=== PATIENT | female | born 1985 | race African-American/Black ===

== ENCOUNTER 2017-09-20 08:56 | Emergency (ER) | payer OTHER ==
[2017-09-20 09:19] VITALS: BP 104/72; PULSE 75; TEMP 98.8; BMI 23.3
--- NOTE | 2017-09-20 09:23 | PDOC ---
History of Present Illness - General Chief Complaint: Urinary Problem Stated Complaint: UTI SYMPTOMS BURNING AND PAIN LOWER ABDOMEN Time Seen by Provider: 09/20/17 09:03 History Source: Patient Exam Limitations: No Limitations - History of Present Illness Travel History: No Initial Comments: 09/20/17 09:15 32y F , sp IUI, currently approx 7 weeks gestation with twins preseints with urinary frequency and suprapbuic pressure. Pt states the symptoms have been going on for approx 2 weeks and she originally went to her obgyn at [facility] who started her on macrobid. She completed gilmer course with minimal improvement by symtoms returned and she was again given another course of macrobid. pt notes that she feels like she needs to urinate and is only urinating a small amount at a time, she also notes some blood in her urine. 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 Past History - Past Medical History Allergies/Adverse Reactions: Allergies Allergy/AdvReac Type Severity Reaction Status Date / Time No Known Allergies Allergy Unverified 09/20/17 08:57 Home Medications: Ambulatory Orders Cephalexin [Keflex] 500 mg PO BID #9 capsule 09/20/17 Ferrous Sulfate [Feosol] 325 mg PO DAILY 09/20/17 Nitrofurantoin Monohyd/M-Cryst [Nitrofurantoin [place]-Mcr 100 mg] 100 mg PO BID Vits #93/Iron Fum/FA [ Formula Tablet] 1 each PO DAILY Review of Systems - Review of Systems Able to Perform ROS?: Yes Comments:: 09/20/17 09:23 Constitutional - no reported Fever, Chills, HEENT: no reported vision changes, sore throat Respiratory: no reported cough, sob, hemoptysis Cardiac: no reported chest pain, palpitations, light headedness, leg swelling Abd/GI: +suprapubic pressure no reported nausea, vomiting, blood per rectum, melena, diarrhea : +dysuria, frequency, no reported discharge Musculskelatal - no reported back pain, joint swelling skin - no reported bruising, erythema, rash neurological: no reported headache, numbness, focal weakness, tingling, ataxia, hematologic: no reported anemia, easy bruising, easy bleeding *Physical Exam - Physical Exam Comments: 09/20/17 09:24 GENERAL: The patient is awake, alert, and fully oriented, Nontoxic - in no acute distress. HEAD: Normocephalic, atraumatic. EYES: extraocular movements intact, sclera anicteric, conjunctiva clear. ENT: Normal voice, Moist mucous membranes. NECK: Normal range of motion, supple LUNGS: Breath sounds equal, clear to auscultation bilaterally. No wheezes, no rhonchi, no rales. HEART: Regular rate and rhythm, normal S1 and S2 without murmur, rub or gallop. ABDOMEN: mild suprapubic tenderness, no adnexal tenderness soft, No guarding, no rebound. No CVA tenderness EXTREMITIES: Normal range of motion, no edema. No clubbing or cyanosis. No cords, erythema, or tenderness. NEUROLOGICAL: No facial assymetry, Normal speech, PSYCH: Normal mood, normal affect. SKIN: Warm, Dry, normal turgor, Medical Decision Making - Medical Decision Making 09/20/17 09:24 will r/o uti will send cultures as this is her 2nd course of abx if uti neg or not suggestive of uTI will do pelvic to r/o discharge 09/20/17 09:48 pts UA c/w UTI will treat with keflex will obtain preg US to confirm viability *DC/Admit/Observation/Transfer Diagnosis at time of Disposition: Urinary tract infection affecting - Discharge Dispostion Disposition: HOME Condition at time of disposition: Improved Admit: No - Prescriptions Prescriptions: Cephalexin [Keflex] 500 mg PO BID #9 capsule - Referrals Referrals: Jamir Ramos MD [Staff Physician] - - Patient Instructions Printed Discharge Instructions: DI for Urinary Tract Infection (UTI) Additional Instructions: Return to the emergency department immediately with ANY new, persistent or worsening symptoms including any Fever, chills, back pain, vomiting or any other concerns. Please follow-up with your COMPUTING ARCHITECT doctor as scheduled for further evaluation of your symptoms. A copy of your ultrasound was included please review this with your doctor. The heart rate was noted to be elevated on the ultrasound. There was also only one fetus identifiable. Please follow up with your sales enablement lead for further evaluation. You MUST call and follow up with your doctor as scheduled next week for further evaluation of your symptoms. Results were discussed with you. Please make sure your doctor reviews the results of your emergency evaluation. Print Language: AUSTRALIAN - Post Discharge Activity
[2017-09-20 09:31] LABS: PH,URINE 5.5 (4.5-8); URINE APPEARANCE Clear; URINE BILIRUBIN Negative (NEGATIVE); URINE BLOOD 2+ (NEGATIVE); URINE COLOR YELLOW; URINE GLUCOSE (UA) Negative (NEGATIVE); URINE KETONE 2+ (NEGATIVE); URINE LEUK ESTERASE 2+ (NEGATIVE); URINE NITRITE Negative (NEGATIVE); URINE PROTEIN Trace (NEGATIVE); URINE UROBILINOGEN 0.2 (0.2-1.0)
[2017-09-20 09:38] LABS: URINE RBC 20-40 /hpf (0-3); URINE WBC 20-40 (0-5)
[2017-09-20 09:39] LABS: URINE BACTERIA MODERATE /hpf (NEGATIVE)
[2017-09-20] MEDS ORDERED: CEPHALEXIN MONOHYDRATE 500 MG CAPSULE (UD) PO ONE (09:47)
[2017-09-20] MEDS ORDERED: ACETAMINOPHEN 325 MG TABLET (FP) PO ONE (09:47)
[2017-09-20] MEDS ORDERED: PHENAZOPYRIDINE HCL 100 MG TABLET (FP) PO ONE (09:51)
[2017-09-20] MEDS ORDERED: ACETAMINOPHEN 325 MG TABLET (FP) ONE (09:55)
[2017-09-20] MEDS ORDERED: PHENAZOPYRIDINE HCL 100 MG TABLET (FP) ONE (09:55)
[2017-09-20] MEDS ORDERED: CEPHALEXIN MONOHYDRATE 500 MG CAPSULE (UD) ONE (09:56)
== END 2017-09-20 12:29 | disposition home or self-care (01) ==
LOC: FER 08:56
DX: O23.41 Unspecified infection of urinary tract in pregnancy, first trimester (principal); Z3A.01 Less than 8 weeks gestation of pregnancy
CPT/HCPCS: 76801-TC; 76817-TC; 81003; 81015; 87086; 99282-25

== ENCOUNTER 2017-11-09 19:26 | Emergency (ER) | payer OTHER ==
[2017-11-09 19:48] VITALS: BP 101/61; PULSE 89; TEMP 98.4; BMI 24.7
--- NOTE | 2017-11-09 20:04 | PDOC ---
History of Present Illness - General History Source: Patient Exam Limitations: No Limitations - History of Present Illness Initial Comments: 11/09/17 20:13 The patient is a 32 year old female , with no significant past medical history, who presents to the emergency department with, four days of lower quadrant abdominal pain. The patient is 4 months . She reports calling her derrick worker about the pain to whom informed her it was possibly due to her uterus expanding. She denies taking anything for the pain.; She denies vaginal bleeding or discharge. She denies recent fevers, chills, headache or dizziness. She denies recent nausea, vomit, diarrhea or constipation. She denies recent dysuria, frequency, urgency or hematuria. She denies recent chest pain or shortness of breath. PAST MEDICAL HISTORY: no significant history PAST SURGICAL HISTORY: no significant history FAMILY HISTORY: no pertinent history SOCIAL HISTORY: Pt lives with family and is employed. MEDICATIONS: reviewed ALLERGIES: As per nursing notes ROS: General: No fevers or chills, no weakness, no weight loss HEENT: No change in vision. No sore throat,. No ear pain CardioVascular: No chest pain or shortness of breath Respiratory:No cough, or wheezing. Abdomen: +LQ abdominal pain. Gastrointestinal: no nausea, vomiting, diarrhea or constipation, No rectal bleeding Genitourinary: No dysuria, hematuria, or frequency Musculoskeletal: No joint or muscle pain or swelling Neurologic: No headache, vertigo, dizziness or loss of consciousness Psychiatric: nor depression Skin: No rashes or easy bruising Endocrine: no increased thirst or abnormal weight change Allergic: no skin or latex allergy Physical Exam: GENERAL: The patient is awake, alert, and fully oriented, in no acute distress. HEAD: Normal with no signs of trauma. EYES: Pupils equal, round and reactive to light, extraocular movements intact, sclera anicteric, conjunctiva clear. EXTREMITIES: Normal range of motion, no edema. ABDOMINAL: + Moderate tenderness upon palpation across the lower abdomen just below the uterus. No guarding or rebound. No CVA tenderness. No back or flank pain. PELVIC: Palpable gravid uterus fundal height above the umbilicus consistent with dates. NEUROLOGICAL: Normal speech, normal gait. PSYCH: Normal mood, normal affect. SKIN: Warm, Dry, normal turgor, no rashes or lesions noted. <Wayne Hoyt - Last Filed: 11/09/17 20:13> - General History Source: Patient Exam Limitations: No Limitations - History of Present Illness Initial Comments: Medical decision making: This is a 32-year-old female who is 16 weeks and comes in complaining of lower abdominal pain right side greater than left. Patient denies any fevers , chills, anorexia or symptoms suggestive of an infection. Patient saw her OB and was told was most likely round ligament pain. Patient is otherwise healthy and has had a normal Will obtain ultrasound, labs and give patient some Tylenol for the pain. We will reassess and review tests and labs. 11/09/17 21:31 Assessment and plan: Reassessment patient is improved with the Tylenol Patient's lab work is all normal including her urinalysis Patient's ultrasound does show some uterine fibroids this most likely is the cause of her discomfort as they are in the area of her where her discomfort is Otherwise there is a normal single intrauterine gestation Patient given copies of her ultrasound and told to follow-up with her OB Patient can take Tylenol for the pain <Torsten Boyd I - Last Filed: 11/09/17 21:33> - General Chief Complaint: Pain Stated Complaint: RIGHT ABDOMINAL PAIN PT Time Seen by Provider: 11/09/17 19:32 Past History <Wayne Hoyt - Last Filed: 11/09/17 20:13> - Past Medical History COPD: No Other medical history: PT IS APPROXIMATELY 4 MONTHS - Reproductive History Is Patient Now?: Yes (#): 5 Para: 2 Therapeutic (s) & number: Yes (1) Spontaneous : 1 - Suicide/Smoking/Psychosocial Hx Smoking History: Never smoked Have you smoked in the past 12 months: No Information on smoking cessation initiated: No Hx Alcohol Use: No Drug/Substance Use Hx: No Substance Use Type: None <Torsten Boyd I - Last Filed: 11/09/17 21:33> - Past Medical History Allergies/Adverse Reactions: Allergies Allergy/AdvReac Type Severity Reaction Status Date / Time No Known Allergies Allergy Unverified 09/20/17 08:57 Home Medications: Ambulatory Orders Cephalexin [Keflex] 500 mg PO BID #9 capsule 09/20/17 Ferrous Sulfate [Feosol] 325 mg PO DAILY 09/20/17 Nitrofurantoin Monohyd/M-Cryst [Nitrofurantoin [place]-Mcr 100 mg] 100 mg PO BID Vit 93/Iron Fum/Folic [ Formula Tablet] 1 each PO DAILY *Physical Exam - Vital Signs Last Vital Signs Temp Pulse Resp BP Pulse Ox 98.4 F 89 16 101/61 100 11/09/17 19:27 11/09/17 19:27 11/09/17 19:27 11/09/17 19:27 11/09/17 19:27 <Wayne Hoyt - Last Filed: 11/09/17 20:13> - Vital Signs Last Vital Signs Temp Pulse Resp BP Pulse Ox 98.4 F 89 16 101/61 100 11/09/17 19:27 11/09/17 19:27 11/09/17 19:27 11/09/17 19:27 11/09/17 19:27 <Torsten Boyd I - Last Filed: 11/09/17 21:33> ED Treatment Course - LABORATORY CBC & Chemistry Diagram: 11/09/17 20:32 11/09/17 20:32 <Torsten Boyd I - Last Filed: 11/09/17 21:33> *DC/Admit/Observation/Transfer - Attestations Scribe Attestion: 11/09/17 20:14 Documentation prepared by Wayne Hoyt, acting as director of graduate medical education for Torsten Boyd MD. <Wayne Hoyt - Last Filed: 11/09/17 20:13> - Discharge Dispostion Admit: No <Torsten Boyd I - Last Filed: 11/09/17 21:33> Diagnosis at time of Disposition: Abdominal pain in Qualifiers: Trimester: second trimester Qualified Code(s): O26.892 - Other specified related conditions, second trimester - Discharge Dispostion Disposition: HOME Condition at time of disposition: Stable - Patient Instructions Additional Instructions: Take a copy of her ultrasound and follow-up with your OB doctor regarding the uterine fibroids and ultrasound report. Tylenol as needed for the pain. Return to the emergency department immediately with ANY new, persistent or worsening symptoms. Continue any medications as previously prescribed by your physician. You should follow up with your primary doctor as soon as possible regarding today's emergency department visit. . Please make sure your doctor reviews the results of your emergency evaluation. Thank you for coming to the Emergency Department today for your care. It was a pleasure to see you today. Please note that your evaluation is INCOMPLETE until you follow-up with your doctor.
[2017-11-09 20:44] LABS: BASO % 0.2 % (0-2.0); EOS % 1.6 % (0-4.5); HEMATOCRIT 34.6 % (32.4-45.2); HEMOGLOBIN 11.3 GM/dl (10.7-15.3); MCH 29.1 pg (25.7-33.7); MCHC 32.6 g/dl (32.0-36.0); MEAN CELL VOLUME 89.2 fl (80-96); MEAN PLT VOLUME 7.3 fl (7.5-11.1); MONO % 6.6 % (3.8-10.2); NEUT % 67.6 % (42.8-82.8); PLATELET COUNT 313 K/MM3 (134-434); RBC 3.88 M/mm3 (3.60-5.2); RDW 11.9 % (11.6-15.6); WHITE BLOOD COUNT 8.3 K/mm3 (4.0-10.8)
[2017-11-09 20:45] LABS: URINE APPEARANCE Clear; URINE BILIRUBIN Negative (NEGATIVE); URINE BLOOD Negative (NEGATIVE); URINE COLOR YELLOW; URINE GLUCOSE (UA) Negative (NEGATIVE); URINE KETONE Negative (NEGATIVE); URINE NITRITE Negative (NEGATIVE); URINE PROTEIN Negative (NEGATIVE); URINE UROBILINOGEN 0.2 (0.2-1.0)
[2017-11-09 20:58] LABS: ALBUMIN 3.5 g/dl (3.5-5.0); ALK PHOS 31 U/L (32-92); ANION GAP 7 (8-16); BILIRUBIN,TOTAL 0.2 mg/dl (0.2-1.0); BLOOD UREA NITROGEN 8 mg/dl (7-18); CHLORIDE 102 mmol/L (98-107); CO2 24 mmol/L (22-28); CREATININE 0.4 mg/dl (0.6-1.3); POTASSIUM 3.8 mmol/L (3.5-5.1); SGOT/AST 19 U/L (10-42); SGPT/ALT 21 U/L (10-40); SODIUM 133 mmol/L (136-145); TOT PROT 6.9 g/dl (6.4-8.3)
[2017-11-09] MEDS ORDERED: ACETAMINOPHEN 500 MG TABLET (FP) ONE (21:41)
[2017-11-09] MEDS ORDERED: ACETAMINOPHEN 500 MG TABLET (FP) PO ONE (21:42)
[2017-11-10 06:21] LABS: GLUCOSE,RANDOM 84 mg/dL (74-106)
== END 2017-11-09 21:43 | disposition home or self-care (01) ==
LOC: FER 19:26
DX: O26.892 Other specified pregnancy related conditions, second trimester (principal); Z3A.16 16 weeks gestation of pregnancy
CPT/HCPCS: 36415; 76705-TC; 80053; 81003; 85025; 99282-25

== ENCOUNTER 2018-12-10 11:36 | Emergency (ER) | payer OTHER ==
[2018-12-10 11:52] VITALS: BP 114/68; PULSE 92; TEMP 99.7; BMI 24.3
--- NOTE | 2018-12-10 12:29 | PDOC ---
History of Present Illness - General Chief Complaint: Cold Symptoms Stated Complaint: COUGH Time Seen by Provider: 12/10/18 12:08 - History of Present Illness Initial Comments: 12/10/18 13:15 And: URI symptoms several days History of present illness: Nasal congestion, watery discharge, sore throat, nonproductive cough for several days. 2 small children at home with similar illness Review of systems: Denies chest pain, shortness of breath, abdominal pain, nausea, vomiting, diarrhea, visual or focal neurologic symptoms, unsteadiness of gait. 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 Physical exam: Alert and oriented well-developed well-nourished no acute distress cheerful and cooperative Afebrile, vital signs normal, specifically normal respiratory rate and oxygen saturation HEENT: Mild nasal congestion, watery discharge, ears and throat clear Neck supple without bruit mass or nodes Chest clear. Full breath sounds bilaterally. No wheezes rales or rhonchi CV S1 and S2 normal without murmur rub or gallop pulses full and symmetric no JVD or edema no bruits Abdomen soft nontender without mass or organomegaly Skin clear, no rash, adequate turgor and wet mucous membranes Impression: Mild viral URI, no sign of pneumonia or other serious respiratory illness Plan: Symptomatic treatment, rest and fluids, home for 2 days. Recheck if symptoms worsen. Fully ambulatory and in no distress upon discharge to follow- up as directed Past History - Past Medical History Allergies/Adverse Reactions: Allergies Allergy/AdvReac Type Severity Reaction Status Date / Time No Known Allergies Allergy Unverified 09/20/17 08:57 Home Medications: Ambulatory Orders Ferrous Sulfate [Feosol] 325 mg PO DAILY 09/20/17 Vit 93/Iron Fum/Folic [ Formula Tablet] 1 each PO DAILY Guaifenesin Dm [Robitussin Dm -] 10 ml PO Q6H PRN #120 ml 12/10/18 COPD: No - Reproductive History (#): 5 Para: 2 Therapeutic (s) & number: Yes (1) Spontaneous : 1 - Suicide/Smoking/Psychosocial Hx Smoking History: Current every day smoker Have you smoked in the past 12 months: No Number of Cigarettes Smoked Daily: 0 Information on smoking cessation initiated: Yes Hx Alcohol Use: No Drug/Substance Use Hx: No Substance Use Type: None *Physical Exam - Vital Signs Last Vital Signs Temp Pulse Resp BP Pulse Ox 99.7 F H 92 H 20 114/68 98 12/10/18 11:37 12/10/18 11:37 12/10/18 11:37 12/10/18 11:37 12/10/18 11:37 Moderate Sedation - Procedure Monitoring Vital Signs: Procedure Monitoring Vital Signs Temperature 99.7 F H 12/10/18 11:37 Pulse Rate 92 H 12/10/18 11:37 Respiratory Rate 20 12/10/18 11:37 Blood Pressure 114/68 12/10/18 11:37 O2 Sat by Pulse Oximetry (%) 98 12/10/18 11:37 *DC/Admit/Observation/Transfer Diagnosis at time of Disposition: Viral upper respiratory tract infection with cough - Discharge Dispostion Disposition: HOME Condition at time of disposition: Stable Decision to Admit order: No - Prescriptions Prescriptions: Guaifenesin Dm [Robitussin Dm -] 10 ml PO Q6H PRN #120 ml PRN Reason: Cough - Referrals Referrals: Reginaldo Fontanez MD [Staff Physician] - - Patient Instructions Printed Discharge Instructions: DI for Viral Upper Respiratory Infection -- Adult Additional Instructions: Rest, fluids, ibuprofen, Robitussin-DM for cough. Stay home and out of the cold as recommended. Return to ER if symptoms worsen Otherwise follow-up with primary physician 2-3 days. - Post Discharge Activity Forms/Work/School Notes: Back to Work
== END 2018-12-10 13:20 | disposition home or self-care (01) ==
LOC: FER 11:36
DX: J06.9 Acute upper respiratory infection, unspecified (principal); R05 Cough
CPT/HCPCS: 99282-25

== ENCOUNTER 2021-09-22 16:20 | Emergency (ER) | payer OTHER ==
[2021-09-22] MEDS ORDERED: ACETAMINOPHEN 1000 MG/100 ML VIAL IVPB ONE (16:38)
[2021-09-22] MEDS ORDERED: FAMOTIDINE 20 MG/50 ML IVPB 20 MG/50 ML MG IVPB ONE ×2 (16:38→16:46)
[2021-09-22] MEDS ORDERED: MAG HYDROX/AL HYDROX/SIMETH 30 ML UNIT-DOSE CUP PO ONE (16:38)
[2021-09-22] MEDS ORDERED: SUCRALFATE 1 GM TABLET (FP) PO ONE (16:42)
[2021-09-22] MEDS ORDERED: ACETAMINOPHEN INJECTION 100 ML IVPB ONE (16:46)
[2021-09-22] MEDS ORDERED: SUCRALFATE 1 GM/10 ML UNIT DOSE CUPS ONE (16:47)
[2021-09-22] MEDS ORDERED: MAG HYDROX/AL HYDROX/SIMETH 30 ML UNIT-DOSE CUP ONE (16:47)
[2021-09-22 16:53] VITALS: BP 128/89; PULSE 86; TEMP 99.7; BMI 24.7
[2021-09-22 17:05] LABS: HCG,QUALITATIVE URINE Negative
[2021-09-22 17:10] LABS: HEMATOCRIT 38.2 % (32.4-45.2); MCH 28.7 pg (25.7-33.7); MCHC 31.5 g/dl (32.0-36.0); MEAN CELL VOLUME 91.3 fl (80-96); MEAN PLT VOLUME 6.9 fl (7.5-11.1); PLATELET COUNT 238 10^3/uL (134-434); RBC 4.18 M/mm3 (3.60-5.2); RDW 12.5 % (11.6-15.6); WHITE BLOOD COUNT 3.7 K/mm3 (4.0-10.8)
[2021-09-22 17:29] LABS: ALBUMIN 4.1 g/dl (3.4-5.0); BILIRUBIN,TOTAL 0.3 mg/dl (0.2-1); CALCIUM 9.1 mg/dl (8.5-10); CREATININE 0.7 mg/dl (0.55-1.3); TOT PROT 7.8 g/dl (6.4-8.2)
[2021-09-22 17:53] LABS: PLATELET ESTIMATE ADEQUATE
== END 2021-09-22 19:24 | disposition left against medical advice (07) ==
LOC: FER 16:20
PROC: 3E033NZ Introduction of Analgesics, Hypnotics, Sedatives into Peripheral Vein, Percutaneous Approach (ICD-10-PCS; principal; 2021-09-22)
PROC: 3E033GC Introduction of Other Therapeutic Substance into Peripheral Vein, Percutaneous Approach (ICD-10-PCS; 2021-09-22)
DX: R10.13 Epigastric pain (principal)
CPT/HCPCS: 36415; 74177-TC; 80053; 81003; 81015; 83690; 84703; 85025; 87077; 87086; 96365; 96375; 99285-25; J0131; Q9967